=== PATIENT | female | born 1965 | race American Indian/Alaskan Native ===

== ENCOUNTER 2019-04-21 00:42 | Emergency (ER) | payer BC, OTHER ==
[2019-04-21] MEDS ORDERED: IBUPROFEN 800 MG TAB PO ONE (01:03)
[2019-04-21] MEDS ORDERED: traMADol 50 MG TAB PO ONE (01:03)
[2019-04-21 01:05] VITALS: BP 121/85
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
== END 2019-04-21 02:38 | disposition home or self-care (01) ==
LOC: ED 00:42
DX: S16.1XXA Strain of muscle, fascia and tendon at neck level, initial encounter (principal); S39.012A Strain of muscle, fascia and tendon of lower back, initial encounter; S09.90XA Unspecified injury of head, initial encounter; E11.9 Type 2 diabetes mellitus without complications; F17.200 Nicotine dependence, unspecified, uncomplicated; Z90.49 Acquired absence of other specified parts of digestive tract; Z79.899 Other long term (current) drug therapy; V49.49XA Driver injured in collision with other motor vehicles in traffic accident, initial encounter; Y93.89 Activity, other specified; Y92.410 Unspecified street and highway as the place of occurrence of the external cause; Y99.8 Other external cause status
CPT/HCPCS: 70450; 72125